=== PATIENT | female | born 1990 | race Caucasian/White ===

== ENCOUNTER 2018-08-10 22:43 | Emergency (ER) | payer MEDICAID, OTHER ==
[~2018-08-10] VITALS: Ht 175.3 cm; Wt 67.5 kg
[~2018-08-10 22:43] MED LIST: ALBU6.7H INH
[2018-08-10] MEDS ORDERED: HYDR-3686 PO (23:52)
[2018-08-10] MEDS ORDERED: AMOX-422 PO (23:52)
[2018-08-10] MEDS ORDERED: MUPI22OI30 TOP (23:52)
[2018-08-11 00:13] VITALS: BP 139/67
== END 2018-08-11 00:21 | disposition home or self-care (01) ==
LOC: ER 22:44
DX: L01.00 Impetigo, unspecified (principal); F15.90 Other stimulant use, unspecified, uncomplicated; F11.90 Opioid use, unspecified, uncomplicated; Z86.14 Personal history of Methicillin resistant Staphylococcus aureus infection; Z86.19 Personal history of other infectious and parasitic diseases; Z79.899 Other long term (current) drug therapy
CPT/HCPCS: 99283

== ENCOUNTER 2018-08-18 12:14 | Emergency (ER) | payer MEDICAID ==
[~2018-08-18] VITALS: Ht 175.3 cm; Wt 69.1 kg
[~2018-08-18 12:14] MED LIST changes: +AMOX-422 PO; +HYDR-3686 PO; +MUPI22OI30 TOP
[2018-08-18 12:23] VITALS: BP 126/84
== END 2018-08-18 12:55 | disposition home or self-care (01) ==
LOC: ER 12:14
DX: F11.90 Opioid use, unspecified, uncomplicated (principal); Z02.89 Encounter for other administrative examinations; F15.90 Other stimulant use, unspecified, uncomplicated; Z86.14 Personal history of Methicillin resistant Staphylococcus aureus infection; Z79.899 Other long term (current) drug therapy
CPT/HCPCS: 99281

== ENCOUNTER 2022-03-17 17:27 | Emergency (ER) | payer MEDICAID, OTHER ==
[~2022-03-17] VITALS: Ht 175.3 cm; Wt 68.2 kg
[~2022-03-17 17:27] MED LIST changes: -ALBU6.7H INH; +ALBU6.7H14 INH; -AMOX-422 PO; -HYDR-3686 PO; -MUPI22OI30 TOP
[2022-03-17 17:45] VITALS: BP 113/72
== END 2022-03-17 20:53 | disposition left against medical advice (07) ==
LOC: ER 17:28
DX: T50.901A Poisoning by unspecified drugs, medicaments and biological substances, accidental (unintentional), initial encounter (principal); Z53.21 Procedure and treatment not carried out due to patient leaving prior to being seen by health care provider; Y92.89 Other specified places as the place of occurrence of the external cause

== ENCOUNTER 2022-12-27 14:14 | Emergency (ER) | payer MEDICAID ==
[~2022-12-27] VITALS: Ht 175.3 cm; Wt 80.0 kg
[2022-12-27] MEDS ORDERED: CefTRIAXone 1000mg IM Kit (w/lidocaine diluent) IM STA (15:33)
[2022-12-27 15:35] VITALS: BP 108/70; PULSE 102; RESP 19; TEMP 97.9; O2SAT 100
[2022-12-27] MEDS ORDERED: azithromycin 250mg tablet PO ONE (15:35)
[2022-12-27 16:31] LABS: URINE HCG NEGATIVE (NEG)
[2022-12-27 16:32] LABS: BILIRUBIN,URINE NEGATIVE (Neg); CLARITY,URINE CLOUDY (Clear); COLOR,URINE YELLOW (Yellow); GLUCOSE, URINE NEGATIVE (Neg); KETONES,URINE NEGATIVE (Neg); LEUKOCYTE ESTERASE ,URINE MODERATE (Neg); NITRITES, URINE POSITIVE (Neg); OCCULT BLOOD,URINE TRACE-INTACT (Neg); PROTEIN,URINE NEGATIVE (Neg)
[2022-12-27 16:34] LABS: UA COLLECTION TYPE CLN CATCH MIDSTREAM
[2022-12-27 16:44] LABS: BACTERIA,URINE 4+ /HPF (Neg); SQUAMOUS EPITHELIAL CELL,UR MANY /LPF (FEW)
[2022-12-27 16:45] LABS: RBC,URINE 0-2 /HPF (0-2); TRANSITIONAL EPI CELLS,URINE FEW /HPF; WBC,URINE 50-100 /HPF (0-4)
== END 2022-12-27 16:42 | disposition home or self-care (01) ==
LOC: ER 14:14
DX: R30.0 Dysuria (principal); F15.10 Other stimulant abuse, uncomplicated; F11.10 Opioid abuse, uncomplicated
CPT/HCPCS: 36415; 81001; 81025; 87491; 87591; 96372; 99283; J0696

== ENCOUNTER 2023-06-03 01:43 | Emergency (ER) | payer SELFPAY ==
[~2023-06-03] VITALS: Ht 175.3 cm; Wt 70.5 kg
[2023-06-03 01:49] VITALS: BP 127/80; PULSE 98; RESP 18; TEMP 98.3; O2SAT 100
== END 2023-06-03 05:37 | disposition left against medical advice (07) ==
LOC: ER 01:44
DX: S00.90XA Unspecified superficial injury of unspecified part of head, initial encounter (principal); Z53.21 Procedure and treatment not carried out due to patient leaving prior to being seen by health care provider; X58.XXXA Exposure to other specified factors, initial encounter; Y93.89 Activity, other specified; Y92.89 Other specified places as the place of occurrence of the external cause; Y99.8 Other external cause status
CPT/HCPCS: 99281